=== PATIENT | female | born 1985 | race Two or more races ===

== ENCOUNTER 2024-03-26 11:11 | Inpatient (IN) | payer OTHER ==
[~2024-03-26] VITALS: Ht 165.1 cm; Wt 80.7 kg
[~2024-03-26 11:11] MED LIST: ALEVE220 MG; FLEXERIL5 MG
[2024-04-04] VITALS (9 sets, daily range): BP systolic 120–141; BP diastolic 72–88
[2024-04-04] MEDS ORDERED: PRENATAL TABLE1 EAC1 PO (06:12)
[2024-04-04] MEDS ORDERED: HEMOCYTE PLUS1 EACH PO (06:13)
[2024-04-04] MEDS ORDERED: AMPICILLIN SODIUM 2,000 MG VIAL IV ONE (06:15)
[2024-04-04] MEDS ORDERED: RINGERS SOLUTION,LACTATED 1,000 ML IV SCH (06:30)
[2024-04-04] MEDS ORDERED: MORPHINE SULFATE 4 MG/ML CARTRIDGE IV PRN (06:30)
[2024-04-04 07:33] LABS: INR < 0.93; PARTIAL THROMBOPLASTIN TIME 26.8 SECONDS (22.0-34.0)
[2024-04-04 07:36] LABS: HEMOGLOBIN 12.2 g/dL (12.0-15.00); MEAN CELL VOLUME 88.6 fL (80.00-100.00); MEAN CORPUSCULAR HEMOGLOBIN 30.9 pg (27.00-32.0); MEAN CORPUSCULAR HGB CONC 34.9 g/dl (32.0-36.0); PLATELET COUNT 163 K/uL (150-450); RED BLOOD COUNT 3.95 M/uL (4.00-6.00); RED CELL DISTRIBUTION WIDTH 15.2 % (11.5-14.5)
[2024-04-04 07:48] LABS: ALBUMIN 3.1 gm/dL (3.4-5.0); BILIRUBIN TOTAL 0.2 mg/dL (0.3-1.2); CALCIUM 8.4 mg/dL (8.5-10.1); CREATININE SERUM 0.4 mg/dL (0.55-1.02); GFR 178.63; POTASSIUM 3.78 mEq/L (3.5-5.1); TOTAL PROTEIN 6.1 gm/dL (6.4-8.2)
[2024-04-04] MEDS ORDERED: AMPICILLIN SODIUM 1,000 MG VIAL IV SCH (09:00)
[2024-04-04] MEDS ORDERED: OXYTOCIN 500 ML IV ONE (15:00)
[2024-04-04] MEDS ORDERED: OXYTOCIN 1,000 ML IV ONE (17:30)
[2024-04-04] MEDS ORDERED: CHLORHEXIDINE GLUCONATE 120 ML BOTTLE TP SCH (17:30)
[2024-04-04] MEDS ORDERED: IBUprofen 400 MG TABLET PO PRN (17:30)
[2024-04-04] MEDS ORDERED: LIDOCAINE HCL 1% 10ML VIAL IJ ONE (18:00)
[2024-04-04] MEDS ORDERED: ERYTHROMYCIN BASE OPHT 1GM EACH TUBE OP ONE (18:00)
[2024-04-04] MEDS ORDERED: SENNA/DOCUSATE SODIUM 1 TAB TABLET PO SCH (21:00)
[2024-04-05 00:43] VITALS: BP 111/65
[2024-04-05 06:27] LABS: HEMATOCRIT 30.6 % (36.0-45.00); HEMOGLOBIN 10.5 g/dL (12.0-15.00); MEAN CELL VOLUME 88.2 fL (80.00-100.00); MEAN CORPUSCULAR HEMOGLOBIN 30.2 pg (27.00-32.0); MEAN CORPUSCULAR HGB CONC 34.2 g/dl (32.0-36.0); PLATELET COUNT 158 K/uL (150-450); RED BLOOD COUNT 3.47 M/uL (4.00-6.00); RED CELL DISTRIBUTION WIDTH 15.5 % (11.5-14.5)
[2024-04-05 07:59] VITALS: BP 120/77
[2024-04-05] MEDS ORDERED: PNV,CALCIUM 72/IRON/FOLIC ACID 1 TAB TABLET PO SCH (09:00)
[2024-04-05 17:38] VITALS: BP 130/78
[2024-04-06] VITALS: BP 121/80
[2024-04-06 05:13] VITALS: BP 100/55
[2024-04-06 08:00] VITALS: BP 129/82
== END 2024-04-06 13:04 | disposition home or self-care (01) | DRG 807 ==
LOC: OB/GYN 04-04 06:10 → LDR 04-04 06:10 → OB/GYN 04-04 06:10 → LDR 04-04 06:28 → OB/GYN 04-04 18:07 → LDR 04-07 13:15
PROVIDERS: ADMIT Obstetrics & Gynecology Maternal & Fetal Medicine; ATTEND Obstetrics & Gynecology Gynecology
PROC: 10E0XZZ Delivery of Products of Conception, External Approach (ICD-10-PCS; principal; 2024-04-04)
PROC: 0KQM0ZZ Repair Perineum Muscle, Open Approach (ICD-10-PCS; 2024-04-04)
PROC: 4A1HXCZ Monitoring of Products of Conception, Cardiac Rate, External Approach (ICD-10-PCS; 2024-04-04)
DX: O70.1 Second degree perineal laceration during delivery (principal); Z37.0 Single live birth; Z3A.39 39 weeks gestation of pregnancy; Z20.822 Contact with and (suspected) exposure to COVID-19

== ENCOUNTER 2024-04-02 10:54 | Outpatient (CLI) | payer OTHER | END 2024-04-02 11:44 | disposition home or self-care (01) | LOC: NST 10:54 | PROVIDERS: ATTEND Obstetrics & Gynecology | DX: Z34.83 Encounter for supervision of other normal pregnancy, third trimester (principal) ==